=== PATIENT | male | born 1950 | race Caucasian/White ===

== ENCOUNTER 2021-01-05 07:24 | Day surgery (SDC) | payer OTHER ==
[2020-12-31 09:35] LABS: EOSINOPHILS % (AUTO) 2.2 % (0.0-8.0); HEMATOCRIT 43.3 % (42-54); LYMPHOCYTES % (AUTO) 25.7 % (21.0-51.0); MEAN CORPUSCULAR HEMOGLOBIN 29.4 pg (27.0-33.0); MEAN CORPUSCULAR HGB CONC 32.3 g/dL (32.0-36.0); MEAN CORPUSCULAR VOLUME 90.8 fL (79-99); MONOCYTES % (AUTO) 6.3 % (3.0-13.0); NEUTROPHILS % (AUTO) 64.5 % (40.0-77.0); PLATELET COUNT (AUTO) 227 K/uL (130-400); RED BLOOD CELL COUNT(AUTO) 4.77 MIL/uL (4.50-6.20); RED CELL DISTRIBUTION WIDTH 14.3 % (11.0-15.5); WHITE BLOOD COUNT (AUTO) 6.8 K/uL (4.8-10.8)
[2020-12-31 09:53] LABS: INR 1.02 (0.85-1.15); PROTHROMBIN TIME 11.1 SEC (9.6-11.6)
[2020-12-31 10:10] LABS: ALBUMIN 4.3 g/dL (3.5-5.0); BILIRUBIN,TOTAL 0.6 mg/dL (0.2-1.0)
[2020-12-31 10:56] LABS: TOTAL PROTEIN, SERUM 8.7 g/dL (6.0-8.3)
[~2021-01-05] VITALS: Ht 175.3 cm; Wt 89.8 kg
[2021-01-05 07:35] VITALS: BP 135/20
[2021-01-05] MEDS ORDERED: SODIUM CHLORIDE 0.9% 1000ML 1,000 ML IV ONE (08:30)
[2021-01-05] MEDS ORDERED: TAMS-1 PO (08:37)
[2021-01-05] MEDS ORDERED: AMLO-258 PO (08:37)
[2021-01-05] MEDS ORDERED: LACT10SO5 PO (08:37)
[2021-01-05] MEDS ORDERED: PROPOFOL 10 MG/ML 20ML VIAL IV ONE ×2 (08:43→08:55)
[2021-01-05 09:10] VITALS: BP 101/34
[2021-01-05 09:15] VITALS: BP 108/42
[2021-01-05 09:20] VITALS: BP 113/47
[2021-01-05 09:25] VITALS: BP 125/45
[2021-01-05 09:40] VITALS: BP 135/61
== END 2021-01-05 09:49 | disposition home or self-care (01) ==
LOC: ENDO 07:24 → DAH 07:24 → ENDO 09:49
PROVIDERS: ATTEND Internal Medicine Gastroenterology
DX: K86.89 Other specified diseases of pancreas (principal); Z20.822 Contact with and (suspected) exposure to COVID-19; K85.00 Idiopathic acute pancreatitis without necrosis or infection; I10 Essential (primary) hypertension; K21.9 Gastro-esophageal reflux disease without esophagitis; E66.9 Obesity, unspecified; F43.10 Post-traumatic stress disorder, unspecified; M10.9 Gout, unspecified; K74.69 Other cirrhosis of liver; M19.90 Unspecified osteoarthritis, unspecified site; Z86.19 Personal history of other infectious and parasitic diseases; Z72.89 Other problems related to lifestyle; Z98.890 Other specified postprocedural states; Z98.49 Cataract extraction status, unspecified eye
CPT/HCPCS: 36415; 43242; 80053; 85025; 85610; 87635; A4215 ×3; A4216; A4221; A4222; A4223; A4606; A4657 ×2; A4663; C9803; J2704 ×2; J7030